=== PATIENT | female | born 1995 | race Caucasian/White ===

== ENCOUNTER 2017-04-24 15:23 | Emergency (ER) | payer BC, MEDICAID ==
[~2017-04-24] VITALS: Ht 157.5 cm; Wt 66.4 kg
[2017-04-24] MEDS ORDERED: HYDROcodone/acetaminophen 5mg/325mg tablet PO ONE (16:20)
[2017-04-24] MEDS ORDERED: CYCL-1 PO (16:24)
[2017-04-24] MEDS: ketorolac trometh. 30mg/ml inj. IM ONE ×2 (16:30→16:32)
[2017-04-24 16:33] VITALS: BP 118/66
== END 2017-04-24 16:35 | disposition home or self-care (01) ==
LOC: ER 15:25
DX: S16.1XXA Strain of muscle, fascia and tendon at neck level, initial encounter (principal); W01.0XXA Fall on same level from slipping, tripping and stumbling without subsequent striking against object, initial encounter; Y93.89 Activity, other specified; Y92.090 Kitchen in other non-institutional residence as the place of occurrence of the external cause; Y99.9 Unspecified external cause status
CPT/HCPCS: 99283; J1885

== ENCOUNTER 2018-01-11 17:42 | Emergency (ER) | payer MEDICAID ==
[~2018-01-11] VITALS: Ht 157.5 cm; Wt 65.5 kg
[~2018-01-11 17:42] MED LIST: CYCL-1 PO
[2018-01-11 18:14] VITALS: BP 122/82
[2018-01-11] MEDS ORDERED: CYCL-1 PO (19:42)
[2018-01-11] MEDS ORDERED: acetaminophen 325mg tablet PO ONE (19:45)
[2018-01-11] MEDS ORDERED: ketorolac trometh inj. 60 MG/2 ML VIAL IM ONE (19:45)
== END 2018-01-11 20:12 | disposition home or self-care (01) ==
LOC: ER 17:43
DX: M54.5 Low back pain (principal); M54.2 Cervicalgia
CPT/HCPCS: 96372; 99283; J1885